=== PATIENT | male | born 1990 | race American Indian/Alaskan Native ===

== ENCOUNTER 2019-10-04 19:08 | Emergency (ER) | payer SELFPAY ==
[2019-10-04 19:23] VITALS: BP 109/75
--- NOTE | 2019-10-04 19:49 | Event Note ---
ED Screening Note ED Screening Note: pts to the ED with c/o dental abscess that began two days ago began having edema today to the upper mouth left upper dental pain last saw a dentist 3 years ago no PMHx no allergies to meds will d/c from triage
--- NOTE | 2019-10-04 19:50 | Emergency Department Report ---
ED ENT HPI - General Chief complaint: Dental/Oral Stated complaint: MOUTH PAIN Time Seen by Provider: 10/04/19 19:46 Source: patient Mode of arrival: Ambulatory Limitations: No Limitations - History of Present Illness Initial comments: pt is a 28 yo male who presents to the ED with c/o dental abscess that began two days ago. he states that today began having edema today to the upper mouth. pt is c/o left upper dental pain. he states that it popped open spontaneously started draining purulent drainage. he states that last saw a dentist 3 years ago. no PMHx. no allergies to meds. - Related Data Previous Rx's Medication Instructions Recorded Last Taken Type Clindamycin [Clindamycin CAP] 450 mg PO TID 7 Days #63 capsule 10/04/19 Unknown Rx Ibuprofen [Motrin 600 MG tab] 600 mg PO Q8H PRN #20 tablet 10/04/19 Unknown Rx Nystas/Diphen/Xyl Visc/Mylanta 30 ml MM TID PRN #480 ml 10/04/19 Unknown Rx [Magic Mouthwash] Allergies Allergy/AdvReac Type Severity Reaction Status Date / Time No Known Allergies Allergy Verified 10/04/19 20:25 ED Dental HPI - General Chief complaint: Dental/Oral Stated complaint: MOUTH PAIN Time Seen by Provider: 10/04/19 19:46 Source: patient Mode of arrival: Ambulatory Limitations: No Limitations - Related Data Previous Rx's Medication Instructions Recorded Last Taken Type Clindamycin [Clindamycin CAP] 450 mg PO TID 7 Days #63 capsule 10/04/19 Unknown Rx Ibuprofen [Motrin 600 MG tab] 600 mg PO Q8H PRN #20 tablet 10/04/19 Unknown Rx Nystas/Diphen/Xyl Visc/Mylanta 30 ml MM TID PRN #480 ml 10/04/19 Unknown Rx [Magic Mouthwash] Allergies Allergy/AdvReac Type Severity Reaction Status Date / Time No Known Allergies Allergy Verified 10/04/19 20:25 ED Review of Systems ROS: Stated complaint: MOUTH PAIN Other details as noted in HPI Comment: All other systems reviewed and negative ED Past Medical Hx - Past Medical History Previous Medical History?: Yes - Surgical History Past Surgical History?: Yes Additional Surgical History: Fractured jaw - Social History Smoking Status: Never Smoker Substance Use Type: Alcohol - Medications Home Medications: Home Medications Medication Instructions Recorded Confirmed Last Taken Type Clindamycin [Clindamycin CAP] 450 mg PO TID 7 Days #63 capsule 10/04/19 Unknown Rx Ibuprofen [Motrin 600 MG tab] 600 mg PO Q8H PRN #20 tablet 10/04/19 Unknown Rx Nystas/Diphen/Xyl Visc/Mylanta 30 ml MM TID PRN #480 ml 10/04/19 Unknown Rx [Magic Mouthwash] ED Physical Exam - General Limitations: No Limitations General appearance: alert, in no apparent distress - Head Head exam: Present: atraumatic, normocephalic - Eye Eye exam: Present: normal appearance - ENT ENT exam: Present: normal orophraynx, mucous membranes moist, other (area of induration and fluctuance to the upper gums midline, purulent drainage is actively drainage, very poor dentition, appears to have gum disease ) - Respiratory Respiratory exam: Present: normal lung sounds bilaterally. Absent: respiratory distress, wheezes, rales, rhonchi, stridor, chest wall tenderness, accessory muscle use, decreased breath sounds, prolonged expiratory - Cardiovascular Cardiovascular Exam: Present: regular rate, normal rhythm, normal heart sounds. Absent: systolic murmur, diastolic murmur, rubs, gallop - Neurological Exam Neurological exam: Present: alert, oriented X3 - Psychiatric Psychiatric exam: Present: normal affect, normal mood - Skin Skin exam: Present: warm, dry, intact ED Course Vital Signs 10/04/19 10/04/19 10/04/19 19:13 20:41 20:42 Temperature 99.2 F Pulse Rate 94 H Respiratory 18 18 18 Rate Blood Pressure 109/75 O2 Sat by Pulse 96 Oximetry ED Medical Decision Making - Medical Decision Making pt is a 28 yo male who presents to the ED with c/o dental abscess that began two days ago. he states that today began having edema today to the upper mouth. pt is c/o left upper dental pain. he states that it popped open spontaneously started draining purulent drainage. he states that last saw a dentist 3 years ago. no PMHx. no allergies to meds. VSS. on exam: area of induration and fluctuance to the upper gums midline, purulent drainage is actively drainage, very poor dentition, appears to have gum disease. appears to have dental abscess and gingivitis. given clindamycin, magic mouthwash, ibuprofen. please use medication as prescribed. follow up with a dentist in the next 2-3 days. it is very important you follow up with a dentist. return to the emergency room for any new or worsening symptoms. pt given list of community dental clinics. Critical care attestation.: If time is entered above; I have spent that time in minutes in the direct care of this critically ill patient, excluding procedure time. ED Disposition Clinical Impression: Dental abscess, Gum disease, Cracked tooth Disposition: TO HOME OR SELFCARE Is pt being admited?: No Does the pt Need Aspirin: No Condition: Stable Instructions: Dental Abscess (ED), Gingivitis (ED) Additional Instructions: please use medication as prescribed. follow up with a dentist in the next 2-3 days. it is very important you follow up with a dentist. return to the emergency room for any new or worsening symptoms. Prescriptions: Clindamycin [Clindamycin CAP] 450 mg PO TID 7 Days #63 capsule Nystas/Diphen/Xyl Visc/Mylanta [Magic Mouthwash] 30 ml MM TID PRN #480 ml PRN Reason: mouth pain Ibuprofen [Motrin 600 MG tab] 600 mg PO Q8H PRN #20 tablet PRN Reason: Pain Referrals: [facility] [Outside] - 2-3 Days Time of Disposition: 20:11 Print Language: BARBADIAN
[2019-10-04] MEDS ORDERED: IBUPROFEN 600 MG TAB PO ONE (20:24)
[2019-10-04] MEDS: IBUPROFEN 600 MG TAB PO ONE ×2 (20:41→20:42)
== END 2019-10-04 20:11 | disposition home or self-care (01) ==
LOC: ED 19:08
DX: K04.7 Periapical abscess without sinus (principal); K03.81 Cracked tooth; F10.10 Alcohol abuse, uncomplicated; Z79.899 Other long term (current) drug therapy

== ENCOUNTER 2021-12-23 09:32 | Emergency (ER) | payer OTHER ==
[2021-12-23 09:58] VITALS: BP 119/83
--- NOTE | 2021-12-23 10:20 | Emergency Department Report ---
ED ENT HPI - General Chief complaint: Dental/Oral Stated complaint: LT CHEEK SWOLLEN/MOUTH ABSCESS Time Seen by Provider: 12/23/21 10:02 Source: patient Mode of arrival: Ambulatory Limitations: No Limitations - History of Present Illness Initial comments: 34-year-old male presents to the ER today with complaint of facial swelling and dental pain. Onset last night. Location left upper jaw. Patient admits that he does have a "bad tooth" in that area. He states that he has a dentist but has not had a chance to call to make an appointment since his symptoms started. He reports increased pain and swelling this morning. He states that he did some salt water rinses this morning without much relief of his symptoms. He reports no facial redness, trismus or drooling or any difficulty breathing, fever or chills. MD complaint: tooth pain, other (facial swelling) -: Last night - Related Data Previous Rx's Medication Instructions Recorded Last Taken Type Nystas/Diphen/Xyl Visc/Mylanta 30 ml MM TID PRN #480 ml 10/04/19 Unknown Rx [Magic Mouthwash] Acetaminophen/Codeine [Tylenol 1 tab PO Q6H PRN #10 tab 12/23/21 Unknown Rx /Codeine # 3 tab] Clindamycin [Clindamycin CAP] 450 mg PO TID 7 Days #30 capsule 12/23/21 Unknown Rx Ibuprofen [Motrin 600 MG tab] 600 mg PO Q8H PRN #20 tablet 12/23/21 Unknown Rx Allergies Allergy/AdvReac Type Severity Reaction Status Date / Time No Known Allergies Allergy Verified 10/04/19 20:25 ED Dental HPI - General Chief complaint: Dental/Oral Stated complaint: LT CHEEK SWOLLEN/MOUTH ABSCESS Time Seen by Provider: 12/23/21 10:02 Source: patient Mode of arrival: Ambulatory Limitations: No Limitations - Related Data Previous Rx's Medication Instructions Recorded Last Taken Type Nystas/Diphen/Xyl Visc/Mylanta 30 ml MM TID PRN #480 ml 10/04/19 Unknown Rx [Magic Mouthwash] Acetaminophen/Codeine [Tylenol 1 tab PO Q6H PRN #10 tab 12/23/21 Unknown Rx /Codeine # 3 tab] Clindamycin [Clindamycin CAP] 450 mg PO TID 7 Days #30 capsule 12/23/21 Unknown Rx Ibuprofen [Motrin 600 MG tab] 600 mg PO Q8H PRN #20 tablet 12/23/21 Unknown Rx Allergies Allergy/AdvReac Type Severity Reaction Status Date / Time No Known Allergies Allergy Verified 10/04/19 20:25 ED Review of Systems ROS: Stated complaint: LT CHEEK SWOLLEN/MOUTH ABSCESS Other details as noted in HPI Comment: All other systems reviewed and negative ENT: dental pain Respiratory: denies: cough, shortness of breath, wheezing Cardiovascular: denies: chest pain, palpitations Gastrointestinal: denies: abdominal pain, nausea, vomiting, diarrhea, co nstipation, hematemesis, hematochezia Genitourinary: denies: urgency, dysuria, frequency, hematuria, discharge, testicular pain, testicular mass Musculoskeletal: denies: back pain, joint swelling, arthralgia Skin: denies: rash, lesions Neurological: denies: headache, weakness, paresthesias Psychiatric: denies: anxiety, depression Hematological/Lymphatic: denies: easy bleeding, easy bruising ED Past Medical Hx - Past Medical History Previous Medical History?: No - Surgical History Past Surgical History?: Yes Additional Surgical History: Fractured jaw - Social History Smoking Status: Never Smoker Substance Use Type: Alcohol - Medications Home Medications: Home Medications Medication Instructions Recorded Confirmed Last Taken Type Nystas/Diphen/Xyl Visc/Mylanta 30 ml MM TID PRN #480 ml 10/04/19 Unknown Rx [Magic Mouthwash] Acetaminophen/Codeine [Tylenol 1 tab PO Q6H PRN #10 tab 12/23/21 Unknown Rx /Codeine # 3 tab] Clindamycin [Clindamycin CAP] 450 mg PO TID 7 Days #30 capsule 12/23/21 Unknown Rx Ibuprofen [Motrin 600 MG tab] 600 mg PO Q8H PRN #20 tablet 12/23/21 Unknown Rx ED Physical Exam - General Limitations: No Limitations General appearance: alert, in no apparent distress - Head Head exam: Present: atraumatic, normocephalic, normal inspection - Eye Eye exam: Present: normal appearance, PERRL, EOMI Pupils: Present: normal accommodation - ENT ENT exam: Present: mucous membranes moist - Expanded ENT Exam Expanded Mouth exam: Present: normal external inspection Teeth exam: Present: dental caries 1 - Dental Tenderness, Other (Mild swelling and mild induration fluctuance noted to the gum; mild swelling noted to left upper cheek but no signs of cellulitis) - Neck Neck exam: Present: normal inspection, full ROM. Absent: meningismus, lymphadenopathy - Respiratory Respiratory exam: Present: normal lung sounds bilaterally. Absent: respiratory distress, wheezes, rales, rhonchi - Cardiovascular Cardiovascular Exam: Present: regular rate, normal rhythm, normal heart sounds - Neurological Exam Neurological exam: Present: alert, oriented X3, CN II-XII intact, normal gait - Psychiatric Psychiatric exam: Present: normal affect, normal mood - Skin Skin exam: Present: intact ED Course Vital Signs 12/23/21 09:57 Temperature 98.7 F Pulse Rate 86 Respiratory 20 Rate Blood Pressure 119/83 [Right] O2 Sat by Pulse 98 Oximetry ED Medical Decision Making - Medical Decision Making The patient is resting comfortably and is well-appearing and in no acute distress. There is no respiratory distress, no stridor and the mental status is normal. The neurological exam is normal, and he appears well-hydrated. Physical exam concerning for dental abscess. the patient current condition does not suggest an infectious process such as meningitis, retropharyngeal abscess, peritonsillar abscess, Azul's angina, orbital cellulitis, periorbital cellulitis, severe meningitis, significant facial cellulitis, sepsis or any significant pathology warranting further testing, continued ED treatment, admission, consultation or any other evaluation at this time. The vital signs have been stable. The patient condition is stable and appropriate for discharge. Critical care attestation.: If time is entered above; I have spent that time in minutes in the direct care of this critically ill patient, excluding procedure time. ED Disposition Clinical Impression: Dental abscess Disposition: 01 HOME / SELF CARE / HOMELESS Is pt being admited?: No Does the pt Need Aspirin: No Condition: Stable Instructions: Dental Abscess Additional Instructions: I recommend that you take the clindamycin as prescribed until completion. Take the ibuprofen and the Tylenol threes as prescribed for pain. I recommend that you do warm salt water rinses or you can get a warm compress and apply it to your face to help with swelling and pain. I do recommend that you call your dentist office Saturday to schedule an appointment for follow-up in 1 week. Return to the ER if your symptoms worsens or changes in any way. Prescriptions: Clindamycin [Clindamycin CAP] 450 mg PO TID 7 Days #30 capsule Ibuprofen [Motrin 600 MG tab] 600 mg PO Q8H PRN #20 tablet PRN Reason: Pain Acetaminophen/Codeine [Tylenol /Codeine # 3 tab] 1 tab PO Q6H PRN #10 tab PRN Reason: Pain , Severe (7-10) Referrals: PRIMARY CARE,MD [Primary Care Provider] - 3-5 Days Forms: Work/School Release Form(ED) Time of Disposition: 10:27
== END 2021-12-23 10:49 | disposition home or self-care (01) ==
LOC: ED 09:32
DX: K04.7 Periapical abscess without sinus (principal); Z72.89 Other problems related to lifestyle; Z79.899 Other long term (current) drug therapy
CPT/HCPCS: 99282